=== PATIENT | female | born 1965 | race African-American/Black ===

== ENCOUNTER 2017-03-04 14:13 | Emergency (ER) | payer OTHER ==
[~2017-03-04 14:13] MED LIST: ALBUTEROL20 ml INH; ALLFEN400 MG PO; FLEXERIL10 MG PO; HYDROCHLOROTH12.5 MG PO; IBUPROFEN600 MG PO; MOBIC PO; NAPROXEN PO; PHENERGAN25 M1 PO; PREDNISONE; SPIRIVA18 MCG INH; ZYRTEC10 M2 PO
== END 2017-03-04 16:45 | disposition left against medical advice (07) ==
LOC: CFTX 14:13 → CED 14:13
DX: Z53.21 Procedure and treatment not carried out due to patient leaving prior to being seen by health care provider (principal)